=== PATIENT | female | born 1965 | race Caucasian/White ===

== ENCOUNTER 2016-09-06 09:13 | Day surgery (SDC) | payer BC ==
[~2016-09-06] VITALS: Ht 172.7 cm; Wt 76.0 kg
[2016-09-06 09:36] VITALS: BP 103/65
[2016-09-06] MEDS ORDERED: PERCOCET 5/31 TABLET PO (12:04)
[2016-09-06] MEDS ORDERED: LIDOCAINE5 GM TP (12:04)
[2016-09-06] MEDS ORDERED: MOTRIN600 MG PO (12:04)
[2016-09-06] MEDS ORDERED: COLACE100 MG PO (12:04)
[2016-09-06 12:41] VITALS: BP 108/75
[2016-09-06 13:21] VITALS: BP 97/46
== END 2016-09-06 13:30 | disposition home or self-care (01) ==
LOC: SDC 09:13
PROC: 06BY3ZC Excision of Hemorrhoidal Plexus, Percutaneous Approach (ICD-10-PCS; principal; 2016-09-06)
DX: K64.2 Third degree hemorrhoids (principal); F17.200 Nicotine dependence, unspecified, uncomplicated; I86.8 Varicose veins of other specified sites
CPT/HCPCS: 88304; J0690; J2250; J3010

== ENCOUNTER 2017-03-13 08:42 | Emergency (ER) | payer BC ==
[~2017-03-13] VITALS: Ht 170.2 cm; Wt 74.3 kg
[~2017-03-13 08:42] MED LIST: COLACE100 MG PO; LIDOCAINE5 GM TP; MOTRIN600 MG PO; PERCOCET 5/31 TABLET PO
[2017-03-13 09:42] LABS: EOSINOPHIL (%) 1.7 % (0-5); EOSINOPHIL COUNT 0.1 K/uL (0-0.3); HEMATOCRIT 38.4 % (36.0-46.0); IMMATURE GRANULOCYTE (%) 0.8 % (0.0-0.7); INSTRUMENT ABS NEUTROPHIL CT 3.3 K/uL; LYMPHOCYTE COUNT 1.4 K/uL (1.0-2.8); MCH 29.6 PG (29.0-34.0); MCHC 34.1 G/DL (30.0-36.0); MCV 86.9 FL (83-99); MEAN PLAT.VOLUME 8.8 uM^3 (9.5-12.4); MONOCYTE (%) 7.2 % (3-12); MONOCYTE COUNT 0.4 K/uL (0-0.8); NEUTROPHIL (%) 63.2 % (45-76); NEUTROPHIL COUNT 3.3 K/uL (1.8-6.4); PLATELET COUNT 210 K/uL (156-360); RBC DIS.WIDTH-CV 12.5 % (11.8-14.6); RBC DIS.WIDTH-SD 39.9 % (39-53); RED BLOOD COUNT 4.42 M/uL (3.80-5.20); WHITE BLOOD COUNT 5.2 K/uL (4.1-10.2)
[2017-03-13 09:48] LABS: INTER. NORMALIZED RATIO 1.1; PROTHROMBIN TIME 11.9 SEC (10.2-12.9)
[2017-03-13 09:50] LABS: D-DIMER ELISA < 150.00 ng/mLDDU (<230)
[2017-03-13 09:53] LABS: CHLORIDE 104 mEq/L (99-109); POTASSIUM 3.9 mEq/L (3.7-5.4); SODIUM 138 mEq/L (136-147)
[2017-03-13 09:55] LABS: GLUCOSE 95 mg/dL (70-99)
[2017-03-13 09:56] LABS: ANION GAP 10 MEQ/L (2-14)
[2017-03-13 09:59] LABS: GFR ESTIMATE (CALCULATED) > 59 mL/min/
[2017-03-13 10:00] LABS: UREA NITROGEN (BUN) 15 mg/dL (9-23)
[2017-03-13 10:07] LABS: TROP-I INTERPRETATION NEGATIVE; TROPONIN-I < 0.01 ng/mL (0.0-0.30)
[2017-03-13 12:50] LABS: TROP-I INTERPRETATION NEGATIVE; TROPONIN-I < 0.01 ng/mL (0.0-0.30)
[2017-03-13 13:00] VITALS: BP 105/60
== END 2017-03-13 13:42 | disposition left against medical advice (07) ==
LOC: EME 08:42
PROVIDERS: Emergency Medicine
DX: R07.9 Chest pain, unspecified (principal); M79.89 Other specified soft tissue disorders; F17.200 Nicotine dependence, unspecified, uncomplicated; Z86.718 Personal history of other venous thrombosis and embolism
CPT/HCPCS: 71010; 80048; 84484; 85025; 85379; 85610; 85730; 93005; 93971; 99281; 99284